=== PATIENT | female | born 1985 | race Caucasian/White ===

== ENCOUNTER 2018-04-07 11:57 | Emergency (ER) | payer OTHER ==
[2018-04-07] MEDS: CYCLOBENZAPRINE 10 MG TABLET. PO (13:19)
[2018-04-07] MEDS: HYDROcodone/APAP 5/325MG 1 TAB TABLET PO (13:19)
== END 2018-04-07 15:36 | disposition home or self-care (01) ==
LOC: ER 11:57
DX: M54.5 Low back pain (principal); M54.6 Pain in thoracic spine; E11.9 Type 2 diabetes mellitus without complications; I10 Essential (primary) hypertension; V43.62XA Car passenger injured in collision with other type car in traffic accident, initial encounter; Y93.I9 Activity, other involving external motion; Y92.410 Unspecified street and highway as the place of occurrence of the external cause; Y99.8 Other external cause status
CPT/HCPCS: 72040; 72072; 72100; 99284